=== PATIENT | female | born 1960 | race Caucasian/White ===

== ENCOUNTER → 2017-11-30 | Day surgery (SDC) | payer OTHER ==
--- NOTE | 2017-11-30 21:21 | RAD REPORT ---
EXAM DESCRIPTION: US - Breast Core BX w/US Guidance - 11/30/2017 11:59 am CLINICAL HISTORY: Lobulated mass lower inner quadrant right breast with abnormal mammogram and sonog viktoriya characteristics. Body marker image incorrectly shows the left breast. Mass is located lower inner quadrant right breas t. COMPARISON: Mammogram November 13, 2017, ultrasound November 24, 2017. FINDINGS: The ultrasound-guided procedure, risks and alternatives were discussed with the patient in detail. After answering all questions, both oral and written consent were obtained. The patient had no contraindicated allergy or medication history. Preliminary imaging again identified the bilobed mass approximately 12 mm in collective measurement i n the lower inner quadrant of the right breast. The right breast was prepped and draped in the usual sterile fashion. From a medial approach, skin and deeper tissues were anesthetized with 1% lidocaine. A portion of the bilobed mass have a cystic component. Under direct sonographic visualization a 22 g auge needle was directed into the cystic portion. This collapsed under aspiration. The 22 gauge needl e was used as well on the more solid-appearing components of this bilobed mass. These did not collaps e. The aspirated fluid was retained for cytology. The vast majority of the mass remained and therefor e core biopsy was performed. From the medial access site, a 14 gauge vacuum assisted biopsy needle wa s inserted. The tip was placed along the medial margin of the mass. A total of six biopsy cores were obtained directed to different portions of this bilobed mass. All obtained material was retained for cytology/histology evaluation. Under direct visualization by sonography a localization clip was placed within the mass. Hemostasis w as obtained at the puncture site. A sterile bandage was placed. There was localized bleeding all roun d but margin of the mass. There was direct pressure applied in between each biopsy and at the conclus ion of the procedure. There was no evidence for an enlarging hematoma. The patient tolerated procedure well without complications. Post-procedure care and precaution instru ctions were given to the patient. IMPRESSION: 1. Ultrasound-guided biopsy of lower inner quadrant right breast mass performed as detai led. 2. The patient tolerated the procedure well without immediate complications. Post-procedure care and precaution instructions were given to the patient. 3. All obtained material was given to pathology for cytology/histology evaluation.
== END | disposition home or self-care (01) ==
LOC: DS 10:37
PROVIDERS: ATTEND Family Medicine
PROC: 0HBT3ZX Excision of Right Breast, Percutaneous Approach, Diagnostic (ICD-10-PCS; principal; 2017-11-30)
DX: C50.911 Malignant neoplasm of unspecified site of right female breast (principal); Z17.0 Estrogen receptor positive status [ER+]
CPT/HCPCS: 19083; 88108; 88305